=== PATIENT | female | born 2000 | race Two or more races ===

== ENCOUNTER 2018-07-23 19:04 | Emergency (ER) | payer SELFPAY ==
[~2018-07-23] VITALS: Ht 165.1 cm; Wt 66.2 kg
[2018-07-23 19:15] VITALS: BP 122/74
[2018-07-23] MEDS ORDERED: FLUORESCEIN SODIUM OPHTH 1 EA STRIP ONE (19:22)
[2018-07-23] MEDS ORDERED: TETRACAINE HCL/PF 0.5% UD 2 ML BOTTLE ONE (19:22)
== END 2018-07-23 19:53 | disposition home or self-care (01) ==
LOC: ER 19:09
DX: S05.02XA Injury of conjunctiva and corneal abrasion without foreign body, left eye, initial encounter (principal); X58.XXXA Exposure to other specified factors, initial encounter; Y93.89 Activity, other specified; Y92.89 Other specified places as the place of occurrence of the external cause; Y99.8 Other external cause status